=== PATIENT | female | born 1930 | race Caucasian/White ===

== ENCOUNTER 2018-01-13 07:09 | Emergency (ER) | payer OTHER ==
[~2018-01-13] VITALS: Ht 160 cm; Wt 65.8 kg
[~2018-01-13 07:09] MED LIST: HYZAAR 100-251 EACH; TOPROL XL50 M1; ZOCOR20 MG
[2018-01-13] MEDS ORDERED: ASPIR 8181 MG PO (07:39)
[2018-01-13] MEDS ORDERED: PLAVIX75 MG PO (07:40)
== END 2018-01-13 14:37 | disposition home or self-care (01) ==
LOC: ER 07:09 → CPU-OBS 07:13 → ER 14:37
DX: M94.0 Chondrocostal junction syndrome [Tietze] (principal); R07.89 Other chest pain; M79.671 Pain in right foot

== ENCOUNTER 2018-03-07 12:43 | Outpatient (CLI) | payer OTHER ==
[~2018-03-07 12:43] MED LIST changes: +ASPIR 8181 MG PO; +PLAVIX75 MG PO
== END 2018-03-07 12:52 | disposition home or self-care (01) ==
LOC: RAD 12:43
DX: J90 Pleural effusion, not elsewhere classified (principal)